=== PATIENT | female | born 1995 | race Caucasian/White ===

== ENCOUNTER 2018-09-10 05:02 | Emergency (ER) | payer MEDICAID ==
[2018-09-10 05:02] VITALS: BMI 29.2
[2018-09-10 05:13] VITALS: RESP 18; TEMP 98.2
[2018-09-10] MEDS ORDERED: Sodium Chloride 0.9% 1,000 ML ONE ×2 (05:27→06:39)
[2018-09-10] MEDS ORDERED: Sodium Chloride 0.9% 1,000 ML IV ONE ×2 (05:29→06:41)
[2018-09-10 05:37] LABS: SQUAMOUS EPITHIAL 2 /hpf (0-5); URINE BACTERIA RARE (<OCC); URINE BILIRUBIN NEGATIVE (NEGATIVE); URINE BLOOD NEGATIVE (NEGATIVE); URINE CLARITY Hazy (Clear); URINE COLOR Straw (YELLOW); URINE GLUCOSE (UA) NORMAL (Normal); URINE LEUKOCYTE ESTERASE NEG Leu/uL (Negative); URINE PROTEIN NEGATIVE (NEGATIVE); URINE UROBILINOGEN NORMAL mg/dL (0.2-1.0)
[2018-09-10 05:38] LABS: HCG,QUALITATIVE URINE NEGATIVE (NEGATIVE)
[2018-09-10 05:38] LABS: BASO # 0.1 K/uL (0.0-0.2); BASO % 0.5 % (0.0-2.0); EOS # 0.3 K/uL (0.0-0.7); EOS % 2.4 % (0.0-4.0); HEMOGLOBIN 13.7 g/dL (11.0-16.0); LYMPH % 30.9 % (20.0-40.0); MEAN CELL VOLUME 82.5 fL (81.0-99.0); MEAN CORPUSCULAR HEMOGLOBIN 28.5 pg (27.0-31.0); MEAN CORPUSCULAR HGB CONC 34.5 g/dL (33.0-37.0); MEAN PLATELET VOLUME 8.2 fL (7.2-11.7); MONO # 0.8 K/uL (0.0-0.8); MONO % 6.3 % (0.0-10.0); NEUT # 7.7 K/uL (1.8-7.0); NEUT % 59.9 % (50.0-75.0); NRBC % 0.1 % (0.0-2.0); RBC 4.79 Mil/uL (3.80-5.20); RED CELL DISTRIBUTION WIDTH 14.1 % (11.5-14.5); WHITE BLOOD COUNT 12.9 K/uL (4.8-10.8)
[2018-09-10 05:50] LABS: ALB/GLOB RATIO 1.3 (1.0-2.1); ALBUMIN 4.3 g/dL (3.5-5.0); ALT/SGPT 23 U/L (9-52); AST/SGOT 20 U/L (14-36); BLOOD UREA NITROGEN 12 mg/dL (7-17); CALCIUM 8.6 mg/dl (8.6-10.4); GFR NON-AFRICAN AMERICAN > 60; LIPASE 91 U/L (23-300)
--- NOTE | 2018-09-10 05:58 | C.PDOC ---
History Of Present Illness 23 year old female presents to the ED c/o left sided back pain radiating to her left sided abdomen that started this morning but got progressively worse over the night. Patient also states having 1 episode of vomiting. Patient denies fever, chills, diarrhea, constipation, dysuria, hematuria, vaginal bleeding, vaginal discharge, rash. Time Seen by Provider: 09/10/18 05:16 Chief Complaint (Nursing): Abdominal Pain History Per: Patient History/Exam Limitations: no limitations Onset/Duration Of Symptoms: Hrs Current Symptoms Are (Timing): Still Present Location Of Pain/Discomfort: LUQ, LLQ Radiation Of Pain To:: Back Quality Of Discomfort: "Pain" Associated Symptoms: Vomiting. denies: Nausea, Diarrhea, Constipation, Urinary Symptoms Alleviating Factors: None Last Bowel Movement: Today Additional History Per: Patient Abnormal Vaginal Bleeding: No Past Medical History Reviewed: Historical Data, Nursing Documentation, Vital Signs Vital Signs: Last Vital Signs Temp 98.2 F 09/10/18 05:10 Pulse 58 L 09/10/18 05:10 Resp 18 09/10/18 05:10 BP 122/60 09/10/18 05:10 Pulse Ox 99 09/10/18 05:10 - Medical History PMH: Anemia Surgical History: No Surg Hx - [facility] Procedures TETANUS TOXOID ADMINIST (05/04/15) Family History: States: Unknown Family Hx - Social History Hx Tobacco Use: No Hx Alcohol Use: No Hx Substance Use: No - Immunization History Hx Tetanus Toxoid Vaccination: No Hx Influenza Vaccination: No Hx Pneumococcal Vaccination: No Review Of Systems Constitutional: Negative for: Fever, Chills Cardiovascular: Negative for: Chest Pain Respiratory: Negative for: Shortness of Breath Gastrointestinal: Positive for: Abdominal Pain. Negative for: Nausea, Vomiting Musculoskeletal: Positive for: Back Pain Neurological: Negative for: Weakness, Numbness, Headache Physical Exam - Physical Exam Appears: Non-toxic, In Acute Distress Skin: Normal Color, Warm, Dry Head: Atraumatic, Normacephalic Eye(s): bilateral: Normal Inspection Oral Mucosa: Moist Neck: Normal ROM, Supple Chest: Symmetrical Cardiovascular: Rhythm Regular Respiratory: Normal Breath Sounds, No Rales, No Rhonchi, No Wheezing Gastrointestinal/Abdominal: Soft, Tenderness (left upper to mid abdomen ), No Guarding, No Rebound, Other (no RLQ or epigastric tend) Back: CVA Tenderness (minimal left) Extremity: Normal ROM, No Tenderness, No Swelling Neurological/Psych: Oriented x3, Normal Speech, Normal Cognition Gait: Steady ED Course And Treatment - Laboratory Results Result Diagrams: 09/10/18 05:35 09/10/18 05:35 O2 Sat by Pulse Oximetry: 99 (ON RA) Pulse Ox Interpretation: Normal Progress Note: Plan: - CT abd/pelvis. - Labs. - IV fluids. - Toradol 30 mg IM. - Zofran 4 mg IVP. 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 - Scribe Statement The provider has reviewed the documentation as recorded by the Scribe Charles Herrera All medical record entries made by the Scribe were at my direction and personally dictated by me. I have reviewed the chart and agree that the record accurately reflects my personal performance of the history, physical exam, [facility] decision making, and the department course for this patient. I have also personally directed, reviewed, and agree with the discharge instructions and disposition. Physician Patient Turnover Patient Signed Over To: Felisha Sanchez Handoff Comments: Pending CT results and reevaluation
[2018-09-10 07:45] VITALS: BP 120/78; PULSE 59; O2SAT 100
--- NOTE | 2018-09-10 08:52 | CT ---
Date of service: 09/10/2018 PROCEDURE: CT Abdomen and Pelvis without intravenous contrast HISTORY: Left flank pain COMPARISON: None. TECHNIQUE: Multiple contiguous axial images were performed through the abdomen and pelvis without the use of intravenous contrast. Subsequently, sagittal and coronal reformatted images were obtained. Radiation dose: Total exam DLP = 1097.13 mGy-cm. This CT exam was performed using one or more of the following dose reduction techniques: Automated exposure control, adjustment of the mA and/or kV according to patient size, and/or use of iterative reconstruction technique. FINDINGS: LOWER THORAX: Unremarkable. LIVER: Unremarkable. No gross lesion or ductal dilatation. GALLBLADDER AND BILE DUCTS: Unremarkable. PANCREAS: Unremarkable. No gross lesion or ductal dilatation. SPLEEN: Unremarkable. Splenule ADRENALS: Unremarkable. No mass. KIDNEYS AND URETERS: Unremarkable. No hydronephrosis. No solid mass. VASCULATURE: Unremarkable. No aortic aneurysm. No aortic atherosclerotic calcification or mural plaque present. BOWEL: Underdistended and or thickened transverse and left hemicolon. APPENDIX: Partially imaged, grossly preserved. PERITONEUM: Unremarkable. No free fluid. No free air. LYMPH NODES: Few shotty para-aortic and inguinal lymph nodes. Few shotty mesenteric lymph nodes. BLADDER: Unremarkable. REPRODUCTIVE: Unremarkable. Mild prominence of the right adnexa measuring up to 3.3 centimeters. BONES: No acute fracture. OTHER FINDINGS: None. IMPRESSION: Underdistended and or thickened mid to distal transverse colon and descending colon. Mild acute infectious and or inflammatory changes cannot be excluded. Clinical correlation. Mild prominence of the right adnexa measuring up to 3.3 centimeters. Additional findings as above. These findings were preliminarily reported at 7:05 a.m. on 09/10/[address] Markus Petty from [email or web address].
== END 2018-09-10 07:56 | disposition home or self-care (01) ==
LOC: SUPCPDRO 05:02 → C.ER 05:02
DX: R10.12 Left upper quadrant pain (principal); R10.32 Left lower quadrant pain
CPT/HCPCS: 74176; 80053; 81001; 83690; 84703; 85025; 96361; 96372; 96374; 96376; 99285; J1885; J2405; J7030